=== PATIENT | male | born 1955 | race African-American/Black ===

== ENCOUNTER 2020-07-09 10:58 | Outpatient (CLI) | payer OTHER | END 2020-07-09 10:59 | disposition home or self-care (01) | LOC: MADRAD 10:58 | PROVIDERS: ATTEND Orthopaedic Surgery | DX: S46.811A Strain of other muscles, fascia and tendons at shoulder and upper arm level, right arm, initial encounter (principal); M75.41 Impingement syndrome of right shoulder; M19.011 Primary osteoarthritis, right shoulder; M25.811 Other specified joint disorders, right shoulder ==